=== PATIENT | male | born 1980 | race Caucasian/White ===

== ENCOUNTER 2019-06-10 18:36 | Emergency (ER) | payer OTHER ==
--- NOTE | 2019-06-10 19:51 | ED Physician Documentation ---
History of Present Illness - Stated complaint Stated Complaint: RT HAND WEAKNESS - Chief complaint Chief Complaint: General - History obtained from History obtained from: Patient, Family - History of Present Illness Timing: How many days ago (5-6) Improved by: nothing Worsened by: no exacerbating factors - Additonal information Additional information: chief c/o is gradual onset, progressive right hand weakness manifest as difficulty straightening his hand/fingers. also has noticed increasingly cool to touch right hand. He also c/o generalized LOPEZ, episodic bilateral blurred vision, and dyspnea. He feels as though the weakness of his right hand are starting to manifest in his left hand since earlier today. He denies any pain of either of upper extremity Review of Systems Constitutional: denies: Fever, Chills, Sweats Eyes: reports: Other (episode of blurry vision earlier today but resolved). denies: Loss of vision, Photophobia Cardiac: reports: Reviewed and negative Respiratory: reports: Dyspnea. denies: Cough GI: reports: Reviewed and negative : reports: Reviewed and negative Skin: reports: Other (sustained several punctures to right FA approximately 1 week ago from blackberry bushes) Musculoskeletal: reports: Reviewed and negative Neurologic: reports: Focal weakness, Headache. denies: Generalized weakness, Numbness, Confused, Altered mental status, Head injury PD PAST MEDICAL HISTORY - Past Medical History Cardiovascular: Hypertension Respiratory: None Endocrine/Autoimmune: None Psych: None Musculoskeletal: Osteoarthritis, Chronic back pain - Present Medications Home Medications: Ambulatory Orders Medication Instructions Recorded Confirmed buPROPion [Wellbutrin Sr] 150 mg PO BID 10/17/14 04/08/16 lamoTRIgine [LaMICtal] 200 mg PO DAILY 10/17/14 04/08/16 Acetaminophen [Tylenol Extra 500 mg PO DAILY 04/08/16 04/08/16 Strength] DULoxetine [Cymbalta] 60 mg PO BID 04/08/16 04/08/16 Ondansetron Odt [Zofran] 4 mg TL Q6H PRN #10 tablet 04/08/16 oxyCODONE ER [OxyCONTIN] 5 mg PO QID 04/08/16 04/08/16 oxyCODONE [Roxicodone] 5 mg PO Q6H PRN #14 tablet 06/11/19 - Allergies Allergies/Adverse Reactions: Allergies Allergy/AdvReac Type Severity Reaction Status Date / Time lisinopril Allergy Unknown Verified 06/10/19 18:48 - Social History Does the pt smoke?: No Smoking Status: Never smoker Does the pt drink ETOH?: No Does the pt have substance abuse?: No PD ED PE NORMAL - Vitals Vital signs reviewed: Yes - General General: Alert and oriented X 3, No acute distress, Well developed/nourished - HEENT HEENT: PERRL, EOMI, Moist mucous membranes - Neck Neck: Supple, no meningeal sign - Cardiac Cardiac: RRR, No murmur, No gallop, No rub, Strong equal pulses - Respiratory Respiratory: No respiratory distress, Clear bilaterally - Abdomen Abdomen: Soft, Non tender - Extremities Extremities: No tenderness to palpate, No edema - Neuro Neuro: Alert and oriented X 3, broker in charge 2-12 intact, No sensory deficit, Normal speech PD ED PE EXPANDED - Extremities Extremities: Other (right hand and digits are cool to touch compared to left hand. There is delayed capillary refill in digits of right hand, particularly when compared to left hand). No: Tenderness - Neuro Neuro: Weakness (5/5 right elbow flexion and extension. 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 unable to fully extend fingers of right hand. ) Results - Vitals Vitals: Oxygen O2 Source Room air - Labs Labs: Laboratory Tests 06/10/19 06/10/19 06/10/19 20:35 20:35 20:35 WBC 6.7 RBC 4.88 Hgb 15.1 Hct 43.4 MCV 88.9 MCH 30.9 MCHC 34.8 RDW 12.1 Plt Count 269 MPV 9.0 Neut # (Auto) 4.0 Lymph # (Auto) 1.8 Troup # (Auto) 0.7 Eos # (Auto) 0.1 Baso # (Auto) 0.0 Absolute Nucleated RBC 0.00 Nucleated RBC % 0.0 Sodium 138 Potassium 3.8 Chloride 99 L Carbon Dioxide 28 Anion Gap 11.0 BUN 20 Creatinine 0.9 Estimated GFR (MDRD) 95 Glucose 90 Calcium 9.6 Phosphorus 3.3 Magnesium 2.2 Total Bilirubin 0.8 AST 36 ALT 52 Alkaline Phosphatase 77 Total Protein 7.6 Albumin 4.6 Globulin 3.0 Albumin/Globulin Ratio 1.5 Lipase 29 TSH 1.48 - Rads (name of study) CT head Radiology: Prelim report reviewed, See rad report chest xray Radiology: Prelim report reviewed, See rad report RUE US venous Radiology: Prelim report reviewed, See rad report RUE arterial Radiology: Prelim report reviewed, See rad report PD MEDICAL DECISION MAKING - ED course Complexity details: reviewed results, re-evaluated patient, considered differential, d/w patient, d/w family Departure - Departure Disposition: 01 Home, Self Care Clinical Impression: Muscle weakness Condition: Good Instructions: ED Weakness [facility] Follow-Up: SHANTELLE SHEPARD MD [Primary Care Provider] - Prescriptions: oxyCODONE [Roxicodone] 5 mg PO Q6H PRN #14 tablet PRN Reason: Pain Discharge Date/Time: 06/11/19 01:10
[2019-06-10 20:41] LABS: BASOPHILS % (AUTO) 0.6 %; EOSINOPHILS # (AUTO) 0.1 10^3/uL (0.0-0.7); EOSINOPHILS % (AUTO) 0.9 %; HGB - HEMOGLOBIN 15.1 g/dL (14.0-18.0); LYMPHOCYTES # (AUTO) 1.8 10^3/uL (1.5-3.5); LYMPHOCYTES % (AUTO) 27.4 %; MEAN CORPUSCULAR HEMOGLOBIN 30.9 pg (27.0-31.0); MEAN CORPUSCULAR HGB CONC 34.8 g/dL (32.0-36.0); MEAN CORPUSCULAR VOLUME 88.9 fL (80.0-94.0); MONOCYTES # (AUTO) 0.7 10^3/uL (0.0-1.0); MONOCYTES % (AUTO) 10.8 %; PLT - PLATELET COUNT 269 10^3/uL (130-450); RED BLOOD COUNT 4.88 10^6/uL (4.70-6.10); RED CELL DISTRIBUTION WIDTH 12.1 % (12.0-15.0); WHITE BLOOD COUNT 6.7 x10^3/uL (4.8-10.8)
[2019-06-10 20:55] LABS: ALBUMIN 4.6 g/dL (3.2-5.5); ALBUMIN/GLOBULIN RATIO 1.5 (1.0-2.2); BILIRUBIN,TOTAL 0.8 mg/dL (0.2-1.0); CALCIUM 9.6 mg/dL (8.5-10.3); CREATININE 0.9 mg/dL (0.6-1.2); MAGNESIUM 2.2 mg/dL (1.7-2.8); PHOSPHORUS 3.3 mg/dL (2.5-4.6); TOTAL PROTEIN 7.6 g/dL (6.7-8.2)
--- NOTE | 2019-06-10 21:13 | CT Report ---
Reason: LOPEZ, weakness Procedure Date: 06/10/2019 Accession Number: [id number] / [id number] Procedure: CT - HEAD WO CPT Code: Final Report FULL RESULT: EXAM: CT HEAD EXAM DATE: 06/10/2019 08:52 PM. CLINICAL HISTORY: LOPEZ, weakness. COMPARISON: None. TECHNIQUE: Multiaxial CT images were obtained from the foramen magnum to the vertex. Reformats: Sagittal and coronal. IV contrast: None. In accordance with CT protocol optimization, one or more of the following dose reduction techniques were utilized for this exam: automated exposure control, adjustment of mA and/or KV based on patient size, or use of iterative reconstructive technique. FINDINGS: Parenchyma: No intraparenchymal hemorrhage. No evidence of mass, midline shift, or CT findings of infarction. Wharton-white differentiation is distinct. Extraaxial Spaces: Normal for age. No subdural or epidural collections identified. Ventricles: Normal in size and position. Sinuses and Orbits: Imaged paranasal sinuses, orbits, and mastoids show no significant abnormality. Bones: No evidence of fracture or calvarial defect. Other: None. IMPRESSION: No significant intracranial abnormality. [facility]
--- NOTE | 2019-06-10 21:14 | XRAY Report ---
Reason: dyspnea Procedure Date: 06/10/2019 Accession Number: [id number] / [id number] Procedure: XR - Chest 2 View X-Ray CPT Code: 35940 Final Report FULL RESULT: EXAM: CHEST RADIOGRAPHY EXAM DATE: 06/10/2019 09:02 PM. CLINICAL HISTORY: Dyspnea. COMPARISON: CHEST 2 VIEW PA/LAT 10/17/2014 6:26 PM. TECHNIQUE: 2 views. FINDINGS: Lungs/Pleura: No focal opacities evident. No pleural effusion. No pneumothorax. Normal volumes. Mediastinum: Heart and mediastinal contours are unremarkable. Other: None. IMPRESSION: Normal 2-view chest radiography. [facility]
--- NOTE | 2019-06-10 22:47 | Ultrasound Report ---
Reason: RUE weakness, delayed cap refill, cool to touch Procedure Date: 06/10/2019 Accession Number: [id number] / [id number] Procedure: US - Duplex Ext Veins Right CPT Code: Final Report FULL RESULT: EXAM: RIGHT UPPER EXTREMITY VENOUS ULTRASOUND EXAM DATE: 06/10/2019 10:00 PM. CLINICAL HISTORY: RUE weakness, delayed cap refill, cool to touch. COMPARISON: None. TECHNIQUE: Real-time sonographic vascular imaging was performed by the soft sugar operator head through the upper extremity utilizing both color-flow and Doppler spectral analysis. Multiple metals sales representative static images were saved for review. FINDINGS: Internal Jugular Vein (IJV): Normal. Subclavian Vein (SCV): Normal. Axillary Vein : Normal. Cephalic Vein (superficial vein): Normal. Basilic Vein (superficial vein): Normal. Brachial Vein: Normal. Contralateral Side: Subclavian Vein: Normal. Other: None. IMPRESSION: No evidence for deep vein thrombosis. [facility]
--- NOTE | 2019-06-10 23:07 | Ultrasound Report ---
Reason: RUE weakness, delayed cap refill, cool to touch Procedure Date: 06/10/2019 Accession Number: [id number] / [id number] Procedure: US - Duplex Upr Ext Arterial RT CPT Code: Final Report FULL RESULT: EXAM: RIGHT LOWER EXTREMITY ARTERIAL DOPPLER ULTRASOUND EXAM DATE: 06/10/2019 10:47 PM. CLINICAL HISTORY: Right upper extremity weakness, delayed capillary refill, cool to touch. COMPARISON: None. TECHNIQUE: Real-time sonographic vascular imaging was performed by the store associate, utilizing color-flow, Doppler flow, and spectral analysis. Multiple pharmacy services representative static images were saved for review. FINDINGS: Right Arm: Subclavian proximal: 105 cm/sec, triphasic. Subclavian mid: 85 cm/sec, triphasic. Subclavian distal: 88 cm/sec, triphasic. Axillary: 100 cm/sec, triphasic. Brachial proximal: 71 cm/sec, triphasic. Brachial distal: 64 cm/sec, triphasic. Radial proximal: 46 cm/sec, monophasic. Ulnar proximal: 53 cm/sec, monophasic. IMPRESSION: Patent right upper extremity arteries with no evidence for stenosis or occlusion. [facility]
[2019-06-10] MEDS ORDERED: MORPHINE 2 MG/ML CARPUJECT IVP STA (23:59)
[2019-06-11 01:06] VITALS: BP 139/93
== END 2019-06-11 01:10 | disposition home or self-care (01) ==
LOC: ED 18:36
DX: M62.81 Muscle weakness (generalized) (principal); I10 Essential (primary) hypertension
CPT/HCPCS: 36415; 70450; 71046; 80053; 83690; 83735; 84100; 84443; 85025; 96374; 99284

== ENCOUNTER 2019-10-11 08:00 | Outpatient (CLI) | payer MEDICARE, OTHER | END 2019-10-11 23:59 | disposition home or self-care (01) | LOC: LAB.R 08:00 | PROVIDERS: ATTEND Family Medicine | DX: J02.9 Acute pharyngitis, unspecified (principal) | CPT/HCPCS: 87070 ==

== ENCOUNTER 2022-10-26 14:34 | Outpatient (CLI) | payer OTHER ==
--- NOTE | 2022-10-27 09:37 | CT Report ---
PROCEDURE: HEAD WO INDICATIONS: HEADACHE TECHNIQUE: Noncontrast 4.5 mm thick angled axial sections acquired from the foramen magnum to the vertex. For r adiation dose reduction, the following was used: automated exposure control, adjustment of mA and/or kV according to patient size. COMPARISON: Head CT 06/10/2019. FINDINGS: Image quality: Good. CSF spaces: Basal cisterns are patent. No extra-axial fluid collections. Ventricles are normal in size and shape. Brain: No midline shift. No intracranial masses or hemorrhage. Punctate calcification in the region of the right temporal lobe, (09/08). Wharton-white matter interface is normal. Skull and face: Calvarium and visualized facial bones are intact, without suspicious lesions. Sinuses: Visualized sinuses and mastoids are clear. IMPRESSION: No significant interval change. No acute intracranial abnormality. Reviewed by: Paulino Cazares MD on 10/27/2022 9:36 AM PDT Approved by: Paulino Cazares MD on 10/27/2022 9:36 AM PDT Station ID: [id number]
== END 2022-10-26 14:35 | disposition home or self-care (01) ==
LOC: DI 14:34
PROVIDERS: ATTEND Internal Medicine
DX: R51.9 Headache, unspecified (principal)